=== PATIENT | female | born 1950 | race Two or more races ===

== ENCOUNTER 2017-05-12 14:55 | Inpatient (IN) | payer MEDICAID ==
[~2017-05-12] VITALS: Ht 160 cm; Wt 54.4 kg
[~2017-05-12 14:55] MED LIST: AMBIEN5 MG ORAL; ASPIRIN EC325 MG ORAL; ATORVASTATIN CA20 MG ORAL; BACTROBAN 2% OI15 GM TOPIC; BENAZEPRIL HCL10 MG ORAL; BISACODYL5 MG ORAL; CARBIDOPA-LEVO1 EAC1 PO; CRANBERRY450 M5 PO; DILAUDID1 MG/1 ML PO; DILAUDID2 MG ORAL; DOCUSATE SODIU100 MG ORAL; LANTUS5 UNITS SUBQ; METOPROLOL TART25 MG ORAL; MOBIC7.5 MG ORAL; NAMENDA10 MG ORAL; NEURONTIN600 MG ORAL; NITROGLYCERIN0.4 MG SL; NITROGLYCERIN2.5 M1 PO; NOVOLOG100 UNIT/3 SUBQ; SEROQUEL100 MG ORAL; SINEMET 25-1001 EAC1 ORAL; TOPIRAMATE100 MG ORAL; TRIHEXYPHENIDYL2 MG ORAL; TRILEPTAL150 MG ORAL; TYLENOL650 MG/20. ORAL; VITAMIN C500 M1 ORAL; ZINC50 M1 ORAL
[2017-05-12] MEDS ORDERED: LORazepam Inj 2mg/ml 1ml IM ONE (15:00)
[2017-05-12] MEDS ORDERED: LORazepam Inj 2mg/ml 1ml ONE (15:00)
[2017-05-12 15:10] VITALS: BP 117/67
[2017-05-12] MEDS ORDERED: HYDROmorphone 1mg/ml Carpuject IM ONE (15:30)
[2017-05-12 15:55] LABS: BASOPHILS % (AUTO) 0.5 % (0.0-2.0); EOSINOPHILS % (AUTO) 0.2 % (0.0-3.0); MEAN CORPUSCULAR HEMOGLOBIN 30.9 PG (27.0-31.0); MEAN CORPUSCULAR HGB CONC 35.6 G/DL (32.0-36.0); MEAN CORPUSCULAR VOLUME 87 FL (80-99); MEAN PLATELET VOLUME 8.4 FL (6.5-10.1); NEUTROPHILS % (AUTO) 78.3 % (45.0-75.0); PLATELET COUNT 245 K/UL (150-450); RED BLOOD COUNT 4.37 M/UL (4.20-5.40); RED CELL DISTRIBUTION WIDTH 11.9 % (11.6-14.8); WHITE BLOOD COUNT 8.5 K/UL (4.8-10.8)
[2017-05-12] MEDS ORDERED: IBUPROFEN600 MG ORAL (15:56)
[2017-05-12] MEDS ORDERED: TEMAZEPAM30 MG ORAL (15:56)
[2017-05-12] MEDS ORDERED: LANTUS SOL100 UNIT/1 SUBQ (15:56)
[2017-05-12] MEDS ORDERED: ARICEPT5 MG ORAL (15:56)
[2017-05-12] MEDS ORDERED: ATIVAN1 MG ORAL (15:56)
[2017-05-12] MEDS ORDERED: Hydromorphone 0.5mg/0.5ml inj IVP ONE (16:00)
[2017-05-12 16:02] LABS: ALANINE AMINOTRANSFERASE 6 U/L (3-33); ALBUMIN/GLOBULIN RATIO 1.3 (1.0-2.7); ANION GAP 15 (5-15); ASPARTATE AMINO TRANSFERASE 8 U/L (5-40); CALCIUM 9.7 mg/dL (8.6-10.2); CARBON DIOXIDE 28 mEQ/L (20-30); CHLORIDE 95 mEQ/L (98-107); CREATININE 1.6 mg/dL (0.5-0.9); GLOMERULAR FILTRATION RATE 32.1 mL/min (>60); HEMOLYSIS 6; MAGNESIUM 2.3 mg/dL (1.7-2.5); POTASSIUM 4.7 mEQ/L (3.4-4.9); SODIUM 138 mEQ/L (135-145); TOTAL PROTEIN 6.7 g/dL (6.6-8.7)
[2017-05-12 16:04] LABS: TROPONIN I < 0.30 ng/mL (<=0.30)
[2017-05-12 16:14] LABS: CKMB 2.2 ng/mL (< 3.8)
[2017-05-12 16:17] LABS: APPEARANCE,URINE SLIGHTLY CLOUDY; KETONES,URINE NEGATIVE (NEGATIVE); LEUKOCYTE ESTERASE ,URINE NEGATIVE (NEGATIVE); NITRITE,URINE NEGATIVE (NEGATIVE); PH,URINE 5 (4.5-8.0); PROTEIN,URINE NEGATIVE (NEGATIVE); UROBILINOGEN,URINE NORMAL MG/DL (0.0-1.0)
--- NOTE | 2017-05-12 17:10 | Emergency Room Report ---
History of Present Illness General Chief Complaint: Chest Pain Source: EMS Present Illness HPI 66-year-old female presents ED for evaluation. Per EMS patient's complaining of chest pain at the [facility] starting today. She has history of dementia and schizophrenia and is unable to provide any additional history. Patient only points to her chest. Patient screaming upon arrival. Patient appears more altered and usual as per nursing staff. Accu-Chek per EMS is also critically high. Patient has history of diabetes. No fevers or chills. No other aggravating relieving factors. No other associated symptom Allergies: Coded Allergies: CODEINE (Unverified Allergy, Unknown, 12/18/14) DIVALPROEX SODIUM (Unverified Allergy, Unknown, 12/18/14) Patient History Past Medical History: DM, HTN, COPD, dementia, psych hx Past Surgical History: none Pertinent Family History: none Social History: Denies: alcohol use, drug use, smoking Now: No Immunizations: UTD Reviewed Nursing Documentation: PMH: Agreed, PSxH: Agreed Nursing Documentation-PMH Hx Hypertension: Yes Hx COPD: Yes Hx Diabetes: Yes History Of Psychiatric Problem: Yes Hx Neurological Problems: Yes Hx Dementia: Yes Hx Alzheimer's Disease: Yes Hx Epilepsy: Yes Hx Speech Problem: Yes Review of Systems All Other Systems: negative except mentioned in HPI Physical Exam Vital Signs Date Time Temp Pulse Resp B/P Pulse Ox O2 Delivery O2 Flow Rate FiO2 05/12/17 14:45 98.1 103 18 117/67 98 Room Air Sp02 EP Interpretation: reviewed, normal General Appearance: no apparent distress, alert, GCS 15, non-toxic Head: normocephalic, atraumatic Eyes: bilateral eye PERRL, bilateral eye normal inspection ENT: hearing grossly normal, normal pharynx, no angioedema, normal voice Neck: full range of motion, supple/symm/no masses Respiratory: chest non-tender, lungs clear, normal breath sounds, speaking full sentences Cardiovascular #1: regular rate, rhythm, no edema Cardiovascular #2: 2+ carotid (R), 2+ carotid (L), 2+ radial (R), 2+ radial (L) , 2+ dorsalis pedis (R), 2+ dorsalis pedis (L) Gastrointestinal: normal bowel sounds, non tender, soft, non-distended, no guarding, no rebound Rectal: deferred Genitourinary: normal inspection, no CVA tenderness Musculoskeletal: back normal, gait/station normal, normal range of motion, non- tender, calf tenderness Neurologic: other Psychiatric: other - schizophrenia Reflexes: 3+ bicep (R), 3+ bicep (L), 3+ tricep (R), 3+ tricep (L), 3+ knee (R) , 3+ knee (L) Skin: normal color, no rash, warm/dry, well hydrated Lymphatic: no adenopathy Medical Decision Making Diagnostic Impression: Primary Impression: ACS (acute coronary syndrome) Additional Impressions: Hyperglycemia Renal insufficiency Schizophrenia Qualified Codes: F20.9 - Schizophrenia, unspecified ER Course Hospital Course 66-year-old female presents ED complaining of chest pain. Accu-Chek critically high Differential diagnoses include: CT/unstable angina, contusion, muscle strain, PTX, rib fracture Clinical course Patient placed on stretcher. on diagnostic cardiac sonographer. After initial history and physical I ordered labs, EKG, chest x-ray, IVFS Patient has schizophrenia and is agitated. Patient given Ativan. Given pain medications labs reviewed- no leukocytosis, hemoglobin/hematocrit stable, BUN/creatinine elevated, troponins negative, glucose given 600 however no signs of DKA EKG-no acute ischemic changes interpreted by me, sinus tachycardia Chest x-ray- unremarkable Patient given IV fluids. Given insulin. Given aspirin. Case discussed with Dr. Sr and he agreed to accept the patient to his service for further care and support I. I feel this is a highly complex case requiring extensive working including EKG/Rhythm strip, Xray/CT/US, Blood/urine lab work, repeat exams while in ED, and administration of strong opiates/narcotics for pain control, admission to hospital or close patient follow up. Diagnosis - ACS, hyperglycemia, renal insufficiency, schizophrenia admitted to telemetry in serious condition Labs Test 05/12/17 15:30 05/12/17 16:00 White Blood Count 8.5 K/UL (4.8-10.8) Red Blood Count 4.37 M/UL (4.20-5.40) Hemoglobin 13.5 G/DL (12.0-16.0) Hematocrit 37.9 % (37.0-47.0) Mean Corpuscular Volume 87 FL (80-99) Mean Corpuscular Hemoglobin 30.9 PG (27.0-31.0) Mean Corpuscular Hemoglobin Concent 35.6 G/DL (32.0-36.0) Red Cell Distribution Width 11.9 % (11.6-14.8) Platelet Count 245 K/UL (150-450) Mean Platelet Volume 8.4 FL (6.5-10.1) Neutrophils (%) (Auto) 78.3 % (45.0-75.0) Lymphocytes (%) (Auto) 15.0 % (20.0-45.0) Monocytes (%) (Auto) 6.0 % (1.0-10.0) Eosinophils (%) (Auto) 0.2 % (0.0-3.0) Basophils (%) (Auto) 0.5 % (0.0-2.0) Sodium Level 138 mEQ/L (135-145) Potassium Level 4.7 mEQ/L (3.4-4.9) Chloride Level 95 mEQ/L (98-107) Carbon Dioxide Level 28 mEQ/L (20-30) Anion Gap 15 (5-15) Blood Urea Nitrogen 51 mg/dL (7-23) Creatinine 1.6 mg/dL (0.5-0.9) Estimat Glomerular Filtration Rate 32.1 mL/min (>60) Glucose Level 634 mg/dL (74-106) Calcium Level 9.7 mg/dL (8.6-10.2) Magnesium Level 2.3 mg/dL (1.7-2.5) Total Bilirubin 0.5 mg/dL (0.0-1.2) Aspartate Amino Transf (AST/SGOT) 8 U/L (5-40) Alanine Aminotransferase (ALT/SGPT) 6 U/L (3-33) Alkaline Phosphatase 86 U/L (35-104) Total Creatine Kinase 56 U/L (26-140) Creatine Kinase MB 2.2 ng/mL (< 3.8) Creatine Kinase MB Relative Index 3.9 Troponin I < 0.30 ng/mL (<=0.30) Pro-B-Type Natriuretic Peptide 2113 pg/mL (0-125) Total Protein 6.7 g/dL (6.6-8.7) Albumin 3.8 g/dL (3.5-5.2) Globulin 2.9 g/dL Albumin/Globulin Ratio 1.3 (1.0-2.7) Acetone Level Negative (NEGATIVE) Urine Color Pale yellow Urine Appearance Slightly cloudy Urine pH 5 (4.5-8.0) Urine Specific [place] 1.010 (1.005-1.035) Urine Protein Negative (NEGATIVE) Urine Glucose (UA) 4+ (NEGATIVE) Urine Ketones Negative (NEGATIVE) Urine Occult Blood Negative (NEGATIVE) Urine Nitrite Negative (NEGATIVE) Urine Bilirubin Negative (NEGATIVE) Urine Urobilinogen Normal MG/DL (0.0-1.0) Urine Leukocyte Esterase Negative (NEGATIVE) EKG Diagnostic Results Rate: tachycardiac Rhythm: NSR ST Segments: no acute changes ASA given to the pt in ED: Yes Rhythm Strip Diag. Results EP Interpretation: yes Rhythm: NSR, no PVC's, no ectopy Chest X-Ray Diagnostic Results Chest X-Ray Diagnostic Results : Chest X-Ray Ordered: Yes # of Views/Limited/Complete: 1 View Indication: Chest Pain EP Interpretation: Yes Interpretation: no consolidation, no effusion, no pneumothorax, no acute cardiopulmonary disease Impression: No acute disease Interpreting ER Provider: Electronically signed by Clinton Hunt MD Last Vital Signs Date Time Temp Pulse Resp B/P Pulse Ox O2 Delivery O2 Flow Rate FiO2 05/12/17 16:39 98.1 05/12/17 15:10 102 18 Room Air 05/12/17 15:10 117/67 98 Status: improved Disposition: ADMITTED INPATIENT Condition: Serious Referrals: NON PHYSICIAN (PCP) CLINTON HUNT M.D. May 12, 2017 17:10
[2017-05-12 17:11] LABS: AMORPHOUS SEDIMENT,UR MODERATE /LPF; BACTERIA,URINE FEW /HPF; RBC,URINE 0-2 /HPF (0 - 2); SQUAMOUS EPITHELIAL CELL,UR FEW /LPF (NONE/OCC); WBC,URINE 0-2 /HPF (0 - 2)
[2017-05-12 17:18] VITALS: BP 120/58
[2017-05-12 18:00] VITALS: BP 104/61
[2017-05-12] MEDS: Trihexyphenidyl 2mg tab ORAL SCH ×2 (18:00→22:08)
[2017-05-12] MEDS ORDERED: DuoNeb 0.5-3(2.5)mg/3ml neb HHN PRN (18:00)
[2017-05-12] MEDS ORDERED: LORazepam 1mg tab ORAL PRN (18:00)
[2017-05-12] MEDS ORDERED: Miralax 17gm pkt ORAL PRN (18:00)
[2017-05-12] MEDS ORDERED: Nitroglycerin Subl 0.4mg tab (Bottle Of 25) SL PRN (18:00)
--- NOTE | 2017-05-12 18:17 | History and Physical ---
History of Present Illness General Date patient seen: May 12, 2017 Time patient seen: 17:30 Reason for Hospitalization: Chest Pain Present Illness HPI 66-year-old female with PMH of dementia , DM, HTN, Parkinson disease, presented to ED for evaluation from SNF patient was complaining of chest pain at the [facility] starting today. Patient was unable to provide any additional history. Patient only was pointing to her chest and screamed . Patient appeared more altered than usual as per nursing staff. Accu-Chek per EMS was also critically high. No fevers or chills. workup in ED revealed no fever, no leukocytosis no evidence of UTI troponin negative pro BNP -2113 BS 634 ; anion gar and bicarb WNL UA no ketones acetone level negative BUN 51 creat-1.6 patient was admitted for further management Allergies: Coded Allergies: CODEINE (Unverified Allergy, Unknown, 12/18/14) DIVALPROEX SODIUM (Unverified Allergy, Unknown, 12/18/14) Medication History Scheduled Ascorbic Acid* (Vitamin C*), 500 MG ORAL DAILY, (Reported) Aspirin* (Aspirin Ec*), 325 MG ORAL DAILY, (Reported) Atorvastatin Calcium* (Atorvastatin Calcium*), 20 MG ORAL BEDTIME, (Reported) Benazepril Hcl* (Benazepril Hcl*), 10 MG ORAL DAILY, (Reported) Carbidopa/Levodopa (Carbidopa-Levodopa 25-100 Tab), 1 EACH PO BID, (Reported) Carbidopa/Levodopa 25-100 Mg* (Sinemet 25-100 Mg Tablet*), 1 TAB ORAL BID, ( Reported) Docusate Sodium* (Docusate Sodium*), 100 MG ORAL TWICE A DAY, (Reported) Donepezil Hcl* (Aricept*), 5 MG ORAL DAILY, (Reported) Gabapentin* (Neurontin*), 600 MG ORAL EVERY 8 HOURS, (Reported) Hydromorphone Hcl (Dilaudid), 2 MG PO EVERY 6 HOURS, (Reported) Ibuprofen* (Motrin*), 600 MG ORAL FOUR TIMES A DAY, (Reported) Insulin Aspart* (Novolog*), 0 SUBQ ACHS, (Reported) Insulin Glargine (Lantus), 25 SUBQ EVERY 12 HOURS, (Reported) Insulin Glargine (Lantus), 16 SUBQ Q12HR, (Reported) Lorazepam* (Ativan*), 1 MG ORAL THREE TIMES A DAY, (Reported) Meloxicam* (Mobic*), 7.5 MG ORAL DAILY, (Reported) Memantine Hcl* (Namenda*), 10 MG ORAL TWICE A DAY, (Reported) Metoprolol Tartrate* (Metoprolol Tartrate*), 25 MG ORAL EVERY 12 HOURS, ( Reported) Mupirocin (Mupirocin), 1 APPLIC TOPIC BID, (Reported) Nitroglycerin (Nitroglycerin), 0.4 MG PO DAILY, (Reported) Oxcarbazepine (Oxcarbazepine), 150 MG ORAL TID, (Reported) Quetiapine Fumarate* (Seroquel*), 150 MG ORAL BEDTIME, (Reported) Topiramate* (Topamax*), 100 MG ORAL TWICE A DAY, (Reported) Trihexyphenidyl Hcl* (Artane*), 2 MG ORAL TWICE A DAY, (Reported) Zinc (Zinc), 220 MG ORAL DAILY, (Reported) Scheduled PRN Acetaminophen (Acetaminophen), 650 MG ORAL EVERY 4 HOURS PRN for Prn Headache/ Temp > 101, (Reported) Bisacodyl* (Dulcolax*), 10 MG ORAL DAILY PRN for Constipation, (Reported) Hydromorphone HCl (Dilaudid), 2 MG ORAL EVERY 6 HOURS PRN for For Pain, ( Reported) Nitroglycerin (Nitroglycerin), 0.4 MG SL q 5min PRN for chest pain, (Reported) Temazepam* (Temazepam*), 15 MG ORAL BEDTIME PRN for Insomnia, (Reported) Zolpidem Tartrate* (Ambien*), 5 MG ORAL BEDTIME PRN for Insomnia, (Reported) Miscellaneous Medications Cranberry Fruit (Cranberry), 450 MG PO, (Reported) Patient History Healthcare decision maker Resuscitation status Advanced Directive on File Past Medical/Surgical History Past Medical/Surgical History: (1) Dementia (2) Diabetes (3) Schizophrenia Review of Systems ROS Narrative unable to obtain due to altered level of consciousness Physical Exam General Appearance: alert, confused, other Lines, tubes and drains: peripheral HEENT: normocephalic, atraumatic, anicteric Neck: non-tender, supple Respiratory/Chest: lungs clear, no respiratory distress, no accessory muscle use Cardiovascular/Chest: normal peripheral pulses, normal rate, regular rhythm Abdomen: normal bowel sounds, non tender, soft Neurologic: abnormal gait, alert - confused, responsive, farsi speaking Musculoskeletal: atrophy - BLE Last 24 Hour Vital Signs Date Time Temp Pulse Resp B/P Pulse Ox O2 Delivery O2 Flow Rate FiO2 05/12/17 17:35 98.1 92 18 120/58 98 Room Air 05/12/17 17:18 98.1 92 18 120/58 98 Room Air 05/12/17 16:39 98.1 05/12/17 15:10 102 18 Room Air 05/12/17 15:10 98.1 102 18 117/67 98 Room Air 05/12/17 14:45 98.1 103 18 117/67 98 Room Air Laboratory Tests Test 05/12/17 15:30 05/12/17 16:00 White Blood Count 8.5 K/UL (4.8-10.8) Red Blood Count 4.37 M/UL (4.20-5.40) Hemoglobin 13.5 G/DL (12.0-16.0) Hematocrit 37.9 % (37.0-47.0) Mean Corpuscular Volume 87 FL (80-99) Mean Corpuscular Hemoglobin 30.9 PG (27.0-31.0) Mean Corpuscular Hemoglobin Concent 35.6 G/DL (32.0-36.0) Red Cell Distribution Width 11.9 % (11.6-14.8) Platelet Count 245 K/UL (150-450) Mean Platelet Volume 8.4 FL (6.5-10.1) Neutrophils (%) (Auto) 78.3 % (45.0-75.0) H Lymphocytes (%) (Auto) 15.0 % (20.0-45.0) L Monocytes (%) (Auto) 6.0 % (1.0-10.0) Eosinophils (%) (Auto) 0.2 % (0.0-3.0) Basophils (%) (Auto) 0.5 % (0.0-2.0) Sodium Level 138 mEQ/L (135-145) Potassium Level 4.7 mEQ/L (3.4-4.9) Chloride Level 95 mEQ/L (98-107) L Carbon Dioxide Level 28 mEQ/L (20-30) Anion Gap 15 (5-15) Blood Urea Nitrogen 51 mg/dL (7-23) H Creatinine 1.6 mg/dL (0.5-0.9) H Estimat Glomerular Filtration Rate 32.1 mL/min (>60) Glucose Level 634 mg/dL (74-106) *H Calcium Level 9.7 mg/dL (8.6-10.2) Magnesium Level 2.3 mg/dL (1.7-2.5) Total Bilirubin 0.5 mg/dL (0.0-1.2) Aspartate Amino Transf (AST/SGOT) 8 U/L (5-40) Alanine Aminotransferase (ALT/SGPT) 6 U/L (3-33) Alkaline Phosphatase 86 U/L (35-104) Total Creatine Kinase 56 U/L (26-140) Creatine Kinase MB 2.2 ng/mL (< 3.8) Creatine Kinase MB Relative Index 3.9 Troponin I < 0.30 ng/mL (<=0.30) Pro-B-Type Natriuretic Peptide 2113 pg/mL (0-125) H Total Protein 6.7 g/dL (6.6-8.7) Albumin 3.8 g/dL (3.5-5.2) Globulin 2.9 g/dL Albumin/Globulin Ratio 1.3 (1.0-2.7) Acetone Level Negative (NEGATIVE) Urine Color Pale yellow Urine Appearance Slightly cloudy Urine pH 5 (4.5-8.0) Urine Specific [place] 1.010 (1.005-1.035) Urine Protein Negative (NEGATIVE) Urine Glucose (UA) 4+ (NEGATIVE) H Urine Ketones Negative (NEGATIVE) Urine Occult Blood Negative (NEGATIVE) Urine Nitrite Negative (NEGATIVE) Urine Bilirubin Negative (NEGATIVE) Urine Urobilinogen Normal MG/DL (0.0-1.0) Urine Leukocyte Esterase Negative (NEGATIVE) Urine RBC 0-2 /HPF (0 - 2) Urine WBC 0-2 /HPF (0 - 2) Urine Squamous Epithelial Cells Few /LPF (NONE/OCC) Urine Amorphous Sediment Moderate /LPF (NONE) H Urine Bacteria Few /HPF (NONE) Height (Feet): 5 Height (Inches): 3.00 Weight (Pounds): 120 Assessment/Plan Assessment/Plan ASSESSMENT chest pain r/o ACS hyperglycemia DM OOC Hx of HTN acute on chronic encephalopathy acute on chronic renal insufficiency chronic dementia Parkinson disease PLAN OF CARE [facility] serial troponin cardio eval ECHO ECG no ST changes , repeat ECG in am restart ASA Nitro prn BP stable , hold on all anti HTN for now BS management with SS of insulin, check HgA1c and optimize further as needed no evidence of DKA CT head no acute intracranial pathology gentle IVF ] monitor renal parameters lytes, avoid nephrotoxic renal US DVT prophylaxis bowel regimen case discussed and evaluated by supervising physician Kodak Geronimomaximo),Berenice LUNDBERG May 12, 2017 18:17
[2017-05-12 20:00] VITALS: BP 133/73
[2017-05-12] MEDS ORDERED: HUMULIN R100 UNIT/1 SUBQ (20:15)
[2017-05-12] MEDS ORDERED: TYLENOL EXTRA500 MG ORAL (20:19)
[2017-05-12] MEDS: Atorvastatin 20mg tab ORAL SCH ×2 (20:51→22:09)
[2017-05-12] MEDS ORDERED: Heparin 5000 units/ml inj SUBQ SCH (21:00)
[2017-05-12] MEDS ORDERED: NovoLOG Insulin Flexpen SUBQ SCH (21:00)
[2017-05-12] MEDS ORDERED: LORazepam Inj 2mg/ml 1ml IV PRN (23:00)
[2017-05-12 23:39] VITALS: BP 115/69
[2017-05-13 04:00] VITALS: BP 118/70
[2017-05-13] MEDS ORDERED: LORazepam Inj 2mg/ml 1ml IV PRN ×3 (05:30→09:30)
[2017-05-13] MEDS ORDERED: Nitroglycerin Subl 0.4mg tab (Bottle Of 25) SL PRN (06:05)
[2017-05-13 06:06] LABS: BASOPHILS % (AUTO) 0.7 % (0.0-2.0); EOSINOPHILS % (AUTO) 1.4 % (0.0-3.0); LYMPHOCYTES % (AUTO) 40.6 % (20.0-45.0); MEAN CORPUSCULAR HEMOGLOBIN 30.2 PG (27.0-31.0); MEAN CORPUSCULAR HGB CONC 33.6 G/DL (32.0-36.0); MEAN CORPUSCULAR VOLUME 90 FL (80-99); MEAN PLATELET VOLUME 8.7 FL (6.5-10.1); MONOCYTES % (AUTO) 4.7 % (1.0-10.0); NEUTROPHILS % (AUTO) 52.7 % (45.0-75.0); PLATELET COUNT 188 K/UL (150-450); RED BLOOD COUNT 3.56 M/UL (4.20-5.40); RED CELL DISTRIBUTION WIDTH 11.9 % (11.6-14.8); WHITE BLOOD COUNT 7.5 K/UL (4.8-10.8)
[2017-05-13 06:14] LABS: CALCIUM 9.1 mg/dL (8.6-10.2); CHOLESTEROL/HDL RATIO 5.2 (3.3-4.4); GLOMERULAR FILTRATION RATE 55.1 mL/min (>60)
[2017-05-13 06:17] LABS: TROPONIN I < 0.30 ng/mL (<=0.30)
[2017-05-13 06:18] VITALS: BP 104/50
[2017-05-13 06:26] LABS: THYROID STIMULATING HORMONE 1.05 uIU/mL (0.300-4.500)
[2017-05-13] MEDS: NovoLOG Insulin Flexpen SUBQ SCH ×4 (06:41→20:52)
[2017-05-13 07:03] LABS: POTASSIUM 4.8 mEQ/L (3.4-4.9)
[2017-05-13 08:00] VITALS: BP 126/58
[2017-05-13] MEDS ORDERED: Donepezil 5mg Tab ORAL SCH ×2 (09:00)
[2017-05-13] MEDS ORDERED: Aspirin EC 325mg tab ORAL SCH (09:00)
[2017-05-13] MEDS ORDERED: Trihexyphenidyl 2mg tab ORAL SCH (09:00)
--- NOTE | 2017-05-13 09:10 | Diagnostic Imaging Report ---
Indication: CP. Technique: XRAY CHEST 1 V. Comparison: 12/18/2014 Findings: The heart is normal in size. There is calcification of the mitral valve. The lungs are clear. No pleural fluid. There is atherosclerotic change of the aorta. The bones are unremarkable. Impression: Atherosclerotic change. Nohemy valvular calcification. Otherwise negative.
[2017-05-13] MEDS: Aspirin EC 325mg tab ORAL SCH (09:57)
[2017-05-13] MEDS: Heparin 5000 units/ml inj SUBQ SCH ×2 (09:59→20:53)
[2017-05-13] MEDS ORDERED: DuoNeb 0.5-3(2.5)mg/3ml neb HHN PRN (10:00)
[2017-05-13] MEDS ORDERED: LORazepam Inj 2mg/ml 1ml IM ONE (10:15)
[2017-05-13] MEDS ORDERED: Haloperidol 5mg/ml Inj IM ONE (10:15)
[2017-05-13] MEDS ORDERED: DiphenhydrAMINE 50mg/ml Inj IM ONE (10:15)
--- NOTE | 2017-05-13 11:33 | Pulmonology Progress Note ---
Assessment/Plan Assessment/Plan ASSESSMENT chest pain r/o ACS hyperglycemia DM OOC Hx of HTN acute on chronic encephalopathy acute on chronic renal insufficiency chronic dementia Parkinson disease PLAN OF CARE [facility] floor serial troponin x 2 negative ECHO with pEF 60% and RVSP of 12, evidence of moderate MR and diastolic dysfunction ECG no ST changes , repeat ECG this am cardio eval restarted on ASA Nitro prn BP stable , hold on all anti HTN for now lipid panel with elevated TG lo fat diet BS management with SS of insulin, HgA1c -12.0 start Levemir and optimize further as needed no evidence of DKA on initial presentation despite hyperglycemia CT head no acute intracranial pathology gentle IVF monitor renal parameters lytes, avoid nephrotoxic renal US DVT prophylaxis bowel regimen psych eval appreciated, started on psych meds as per psych recommendations dc plan for tomorrow after cardio clearance case discussed and evaluated by supervising physician Subjective Allergies: Coded Allergies: CODEINE (Unverified Allergy, Unknown, 12/18/14) DIVALPROEX SODIUM (Unverified Allergy, Unknown, 12/18/14) Subjective no complaints of chest pain, no SOB ECG with NSR, transferred to [facility] floor from [facility] Objective Last 24 Hour Vital Signs Date Time Temp Pulse Resp B/P Pulse Ox O2 Delivery O2 Flow Rate FiO2 05/13/17 08:00 97.3 85 18 126/58 98 Room Air 05/13/17 06:35 98 18 Room Air 05/13/17 06:18 97.4 63 18 104/50 100 Room Air 05/13/17 04:00 104 05/13/17 04:00 98.3 107 18 118/70 97 Room Air 05/13/17 00:00 121 05/12/17 23:39 97.8 125 20 115/69 98 Room Air 05/12/17 20:00 97.6 89 20 133/73 98 Room Air 05/12/17 20:00 79 05/12/17 18:00 97.9 86 18 104/61 96 Room Air 05/12/17 17:35 98.1 92 18 120/58 98 Room Air 05/12/17 17:18 98.1 92 18 120/58 98 Room Air 05/12/17 16:39 98.1 05/12/17 15:10 102 18 Room Air 05/12/17 15:10 98.1 102 18 117/67 98 Room Air 05/12/17 14:45 98.1 103 18 117/67 98 Room Air Intake and Output 05/12/17 05/13/17 19:00 07:00 Intake Total 460 ml 600 ml Balance 460 ml 600 ml Intake Oral 60 ml 50 ml IV Total 400 ml 550 ml # Bowel Movements 2 Objective General Appearance: alert, confused, other Lines, tubes and drains: peripheral HEENT: normocephalic, atraumatic, anicteric Neck: non-tender, supple Respiratory/Chest: lungs clear, no respiratory distress, no accessory muscle use Cardiovascular/Chest: normal peripheral pulses, normal rate, regular rhythm Abdomen: normal bowel sounds, non tender, soft Neurologic: abnormal gait, alert - confused, responsive, farsi speaking Musculoskeletal: atrophy - BLE Laboratory Tests 05/12/17 15:30: White Blood Count 8.5, Red Blood Count 4.37, Hemoglobin 13.5, Hematocrit 37.9, Mean Corpuscular Volume 87, Mean Corpuscular Hemoglobin 30.9, Mean Corpuscular Hemoglobin Concent 35.6, Red Cell Distribution Width 11.9, Platelet Count 245, Mean Platelet Volume 8.4, Neutrophils (%) (Auto) 78.3H, Lymphocytes (%) (Auto) 15.0L, Monocytes (%) (Auto) 6.0, Eosinophils (%) (Auto) 0.2, Basophils (%) (Auto ) 0.5, Sodium Level 138, Potassium Level 4.7, Chloride Level 95L, Carbon Dioxide Level 28, Anion Gap 15, Blood Urea Nitrogen 51H, Creatinine 1.6H, Estimat Glomerular Filtration Rate 32.1, Glucose Level 634*H, Calcium Level 9.7 , Magnesium Level 2.3, Total Bilirubin 0.5, Aspartate Amino Transf (AST/SGOT) 8 , Alanine Aminotransferase (ALT/SGPT) 6, Alkaline Phosphatase 86, Total Creatine Kinase 56, Creatine Kinase MB 2.2, Creatine Kinase MB Relative Index 3.9, Troponin I < 0.30, Pro-B-Type Natriuretic Peptide 2113H, Total Protein 6.7 , Albumin 3.8, Globulin 2.9, Albumin/Globulin Ratio 1.3, Acetone Level Negative 05/12/17 16:00: Urine Color Pale yellow, Urine Appearance Slightly cloudy, Urine pH 5, Urine Specific [place] 1.010, Urine Protein Negative, Urine Glucose (UA) 4+H, Urine Ketones Negative, Urine Occult Blood Negative, Urine Nitrite Negative, Urine Bilirubin Negative, Urine Urobilinogen Normal, Urine Leukocyte Esterase Negative , Urine RBC 0-2, Urine WBC 0-2, Urine Squamous Epithelial Cells Few, Urine Amorphous Sediment ModerateH, Urine Bacteria Few 05/13/17 05:02: White Blood Count 7.5, Red Blood Count 3.56L, Hemoglobin 10.8L, Hematocrit 32.0L , Mean Corpuscular Volume 90, Mean Corpuscular Hemoglobin 30.2, Mean Corpuscular Hemoglobin Concent 33.6, Red Cell Distribution Width 11.9, Platelet Count 188, Mean Platelet Volume 8.7, Neutrophils (%) (Auto) 52.7, Lymphocytes (% ) (Auto) 40.6, Monocytes (%) (Auto) 4.7, Eosinophils (%) (Auto) 1.4, Basophils ( %) (Auto) 0.7, Sodium Level 142, Potassium Level 4.8, Chloride Level 105, Carbon Dioxide Level 24, Anion Gap 13, Blood Urea Nitrogen 36H, Creatinine 1.0H , Estimat Glomerular Filtration Rate 55.1, Glucose Level 225#H, Calcium Level 9.1, Troponin I < 0.30, Hemoglobin A1c 12.0H, Triglycerides Level 193H, Cholesterol Level 150, LDL Cholesterol 82, HDL Cholesterol 29, Cholesterol/HDL Ratio 5.2H, Thyroid Stimulating Hormone (TSH) 1.050 Current Medications Medications (Trade) Dose Ordered Sig/Janki Route PRN Reason Start Time Stop Time Status Last Admin Dose Admin Acetaminophen (Tylenol) 650 mg Q4H PRN ORAL T>100.5 05/13/17 10:00 06/12/17 09:59 Albuterol/ Ipratropium (DuoNeb 0.5-3(2.5)mg/3ml) 3 ml Q4H PRN HHN Shortness of Breath 05/13/17 10:00 05/18/17 09:59 Aspirin (Ecotrin) 325 mg DAILY ORAL 05/13/17 09:00 06/12/17 08:59 05/13/17 09:57 Atorvastatin Calcium (Lipitor) 20 mg BEDTIME ORAL 05/13/17 21:00 06/12/17 20:59 Dextrose (Dextrose 50%) STAT PRN IV Hypoglycemia 05/13/17 18:15 06/12/17 18:14 Donepezil HCl (Aricept) 5 mg DAILY ORAL 05/13/17 09:00 06/12/17 08:59 05/13/17 09:57 Heparin Sodium (Porcine) (Heparin 5000 units/ml) 5,000 units EVERY 12 HOURS SUBQ 05/13/17 09:00 06/12/17 08:59 05/13/17 09:59 Insulin Aspart (NovoLOG) BEFORE MEALS AND HS SUBQ 05/13/17 06:30 06/12/17 06:29 05/13/17 06:41 Lorazepam (Ativan 2mg/ml 1ml) 1 mg Q4H PRN IV For Anxiety 05/13/17 09:30 05/20/17 09:29 Lorazepam (Ativan) 1 mg Q8H PRN ORAL ANXIETY 05/13/17 10:00 05/20/17 09:59 Meloxicam (Mobic) 7.5 mg DAILY ORAL 05/13/17 09:00 06/12/17 08:59 05/13/17 09:56 Nitroglycerin (Ntg) 0.4 mg Q5M PRN SL Prn Chest Pain 05/13/17 06:05 06/12/17 06:04 Ondansetron HCl (Zofran) 4 mg Q6H PRN IVP Nausea & Vomiting 05/13/17 12:00 06/12/17 11:59 Polyethylene Glycol (Miralax) 17 gm DAILYPRN PRN ORAL Constipation 05/13/17 18:00 06/12/17 17:59 Quetiapine Fumarate (SEROquel) 150 mg BEDTIME ORAL 05/13/17 21:00 06/12/17 20:59 Sodium Chloride (Sodium Chloride 1000ml bag) 1,000 ml @ 50 mls/hr Q20H IV 05/13/17 06:00 06/12/17 05:59 Temazepam (Restoril) 15 mg DAILYPRN PRN ORAL Insomnia 05/13/17 21:00 05/20/17 20:59 Trihexyphenidyl HCl (Artane) 2 mg TWICE A DAY ORAL 05/13/17 09:00 06/12/17 08:59 05/13/17 09:56 Berenice Candelario NP ([facility]) May 13, 2017 11:33
[2017-05-13 12:00] VITALS: BP 140/62
--- NOTE | 2017-05-13 14:47 | Consultation ---
History of Present Illness General Chief Complaint: Chest Pain Present Illness HPI 66-year-old female with PMH of dementia , DM, HTN, Parkinson disease, presented to ED for evaluation from SNF the patient was complaining of chest pain. the pt is agitated and has severe cognitive impairment. yelling and is severely agitated. spoke with brother who gave me consent to start antipsychotics/ Allergies: Coded Allergies: CODEINE (Unverified Allergy, Unknown, 12/18/14) DIVALPROEX SODIUM (Unverified Allergy, Unknown, 12/18/14) Medication History Scheduled Ascorbic Acid* (Vitamin C*), 500 MG ORAL DAILY, (Reported) Aspirin* (Aspirin Ec*), 325 MG ORAL DAILY, (Reported) Benazepril Hcl* (Benazepril Hcl*), 10 MG ORAL DAILY, (Reported) Carbidopa/Levodopa (Carbidopa-Levodopa 25-100 Tab), 1 EACH PO ACBREAKFAST, ( Reported) Docusate Sodium* (Docusate Sodium*), 100 MG ORAL DAILY, (Reported) Donepezil Hcl* (Aricept*), 5 MG ORAL HS, (Reported) Ibuprofen* (Motrin*), 600 MG ORAL FOUR TIMES A DAY, (Reported) Lorazepam* (Ativan*), 1 MG ORAL THREE TIMES A DAY, (Reported) Meloxicam* (Mobic*), 7.5 MG ORAL DAILY, (Reported) Metoprolol Tartrate* (Metoprolol Tartrate*), 25 MG ORAL EVERY 12 HOURS, ( Reported) Scheduled PRN Acetaminophen* (Tylenol Extra Strength*), 500 MG ORAL Q8H PRN for Prn Headache/ Temp > 101, (Reported) Temazepam* (Temazepam*), 15 MG ORAL BEDTIME PRN for Insomnia, (Reported) Miscellaneous Medications Cranberry Fruit (Cranberry), 450 MG PO, (Reported) Insulin Regular, Human (Humulin R), 0 SUBQ, (Reported) Discontinued Medications Acetaminophen (Acetaminophen), 650 MG ORAL EVERY 4 HOURS PRN for Prn Headache/ Temp > 101, (Reported) Discontinued Reason: Pt stopped taking med Atorvastatin Calcium* (Atorvastatin Calcium*), 20 MG ORAL BEDTIME, (Reported) Discontinued Reason: Pt stopped taking med Bisacodyl* (Dulcolax*), 10 MG ORAL DAILY PRN for Constipation, (Reported) Discontinued Reason: Pt stopped taking med Carbidopa/Levodopa 25-100 Mg* (Sinemet 25-100 Mg Tablet*), 1 TAB ORAL BID, ( Reported) Discontinued Reason: Pt stopped taking med Gabapentin* (Neurontin*), 600 MG ORAL EVERY 8 HOURS, (Reported) Discontinued Reason: Pt stopped taking med Hydromorphone HCl (Dilaudid), 2 MG ORAL EVERY 6 HOURS PRN for For Pain, ( Reported) Discontinued Reason: Pt stopped taking med Hydromorphone Hcl (Dilaudid), 2 MG PO EVERY 6 HOURS, (Reported) Discontinued Reason: Pt stopped taking med Insulin Aspart* (Novolog*), 0 SUBQ ACHS, (Reported) Discontinued Reason: Pt stopped taking med Insulin Glargine (Lantus), 25 SUBQ EVERY 12 HOURS, (Reported) Discontinued Reason: MD discontinued med Insulin Glargine (Lantus), 16 SUBQ Q12HR, (Reported) Discontinued Reason: MD discontinued med Memantine Hcl* (Namenda*), 10 MG ORAL TWICE A DAY, (Reported) Discontinued Reason: Pt stopped taking med Mupirocin (Mupirocin), 1 APPLIC TOPIC BID, (Reported) Discontinued Reason: Pt stopped taking med Nitroglycerin (Nitroglycerin), 0.4 MG PO DAILY, (Reported) Discontinued Reason: Pt stopped taking med Nitroglycerin (Nitroglycerin), 0.4 MG SL q 5min PRN for chest pain, (Reported) Discontinued Reason: Pt stopped taking med Oxcarbazepine (Oxcarbazepine), 150 MG ORAL TID, (Reported) Discontinued Reason: Pt stopped taking med Quetiapine Fumarate* (Seroquel*), 150 MG ORAL BEDTIME, (Reported) Discontinued Reason: Pt stopped taking med Topiramate* (Topamax*), 100 MG ORAL TWICE A DAY, (Reported) Discontinued Reason: Pt stopped taking med Trihexyphenidyl Hcl* (Artane*), 2 MG ORAL TWICE A DAY, (Reported) Discontinued Reason: Pt stopped taking med Zinc (Zinc), 220 MG ORAL DAILY, (Reported) Discontinued Reason: Pt stopped taking med Zolpidem Tartrate* (Ambien*), 5 MG ORAL BEDTIME PRN for Insomnia, (Reported) Discontinued Reason: Pt stopped taking med Patient History Limited by: medical condition History Provided By: Patient, Family Member, Medical Record, PMD Healthcare decision maker Resuscitation status Full Code Advanced Directive on File Past Medical/Surgical History Past Medical/Surgical History: (1) Chest pain (2) Dementia (3) Diabetes (4) Chest pain (5) Hyperglycemia (6) Renal insufficiency (7) Schizophrenia (8) ACS (acute coronary syndrome) Review of Systems Psychiatric: Reports: anxiety, depressed feelings, emotional problems, hallucinations, prior hx Physical Exam General Appearance: alert, severe distress, agitated Neurologic: alert, responsive, disoriented, depressed affect Last 24 Hour Vital Signs Date Time Temp Pulse Resp B/P Pulse Ox O2 Delivery O2 Flow Rate FiO2 05/13/17 12:00 96.8 83 18 140/62 100 Room Air 05/13/17 08:00 97.3 85 18 126/58 98 Room Air 05/13/17 06:35 98 18 Room Air 05/13/17 06:18 97.4 63 18 104/50 100 Room Air 05/13/17 04:00 104 05/13/17 04:00 98.3 107 18 118/70 97 Room Air 05/13/17 00:00 121 05/12/17 23:39 97.8 125 20 115/69 98 Room Air 05/12/17 20:00 97.6 89 20 133/73 98 Room Air 05/12/17 20:00 79 05/12/17 18:00 97.9 86 18 104/61 96 Room Air 05/12/17 17:35 98.1 92 18 120/58 98 Room Air 05/12/17 17:18 98.1 92 18 120/58 98 Room Air 05/12/17 16:39 98.1 05/12/17 15:10 102 18 Room Air 05/12/17 15:10 98.1 102 18 117/67 98 Room Air 05/12/17 14:45 98.1 103 18 117/67 98 Room Air Intake and Output 05/12/17 05/13/17 19:00 07:00 Intake Total 460 ml 600 ml Balance 460 ml 600 ml Intake Oral 60 ml 50 ml IV Total 400 ml 550 ml # Bowel Movements 2 Laboratory Tests Test 05/12/17 15:30 05/12/17 16:00 05/13/17 05:02 White Blood Count 8.5 K/UL (4.8-10.8) 7.5 K/UL (4.8-10.8) Red Blood Count 4.37 M/UL (4.20-5.40) 3.56 M/UL (4.20-5.40) L Hemoglobin 13.5 G/DL (12.0-16.0) 10.8 G/DL (12.0-16.0) L Hematocrit 37.9 % (37.0-47.0) 32.0 % (37.0-47.0) L Mean Corpuscular Volume 87 FL (80-99) 90 FL (80-99) Mean Corpuscular Hemoglobin 30.9 PG (27.0-31.0) 30.2 PG (27.0-31.0) Mean Corpuscular Hemoglobin Concent 35.6 G/DL (32.0-36.0) 33.6 G/DL (32.0-36.0) Red Cell Distribution Width 11.9 % (11.6-14.8) 11.9 % (11.6-14.8) Platelet Count 245 K/UL (150-450) 188 K/UL (150-450) Mean Platelet Volume 8.4 FL (6.5-10.1) 8.7 FL (6.5-10.1) Neutrophils (%) (Auto) 78.3 % (45.0-75.0) H 52.7 % (45.0-75.0) Lymphocytes (%) (Auto) 15.0 % (20.0-45.0) L 40.6 % (20.0-45.0) Monocytes (%) (Auto) 6.0 % (1.0-10.0) 4.7 % (1.0-10.0) Eosinophils (%) (Auto) 0.2 % (0.0-3.0) 1.4 % (0.0-3.0) Basophils (%) (Auto) 0.5 % (0.0-2.0) 0.7 % (0.0-2.0) Sodium Level 138 mEQ/L (135-145) 142 mEQ/L (135-145) Potassium Level 4.7 mEQ/L (3.4-4.9) 4.8 mEQ/L (3.4-4.9) Chloride Level 95 mEQ/L (98-107) L 105 mEQ/L (98-107) Carbon Dioxide Level 28 mEQ/L (20-30) 24 mEQ/L (20-30) Anion Gap 15 (5-15) 13 (5-15) Blood Urea Nitrogen 51 mg/dL (7-23) H 36 mg/dL (7-23) H Creatinine 1.6 mg/dL (0.5-0.9) H 1.0 mg/dL (0.5-0.9) H Estimat Glomerular Filtration Rate 32.1 mL/min (>60) 55.1 mL/min (>60) Glucose Level 634 mg/dL (74-106) *H 225 mg/dL (74-106) #H Calcium Level 9.7 mg/dL (8.6-10.2) 9.1 mg/dL (8.6-10.2) Magnesium Level 2.3 mg/dL (1.7-2.5) Total Bilirubin 0.5 mg/dL (0.0-1.2) Aspartate Amino Transf (AST/SGOT) 8 U/L (5-40) Alanine Aminotransferase (ALT/SGPT) 6 U/L (3-33) Alkaline Phosphatase 86 U/L (35-104) Total Creatine Kinase 56 U/L (26-140) Creatine Kinase MB 2.2 ng/mL (< 3.8) Creatine Kinase MB Relative Index 3.9 Troponin I < 0.30 ng/mL (<=0.30) < 0.30 ng/mL (<=0.30) Pro-B-Type Natriuretic Peptide 2113 pg/mL (0-125) H Total Protein 6.7 g/dL (6.6-8.7) Albumin 3.8 g/dL (3.5-5.2) Globulin 2.9 g/dL Albumin/Globulin Ratio 1.3 (1.0-2.7) Acetone Level Negative (NEGATIVE) Urine Color Pale yellow Urine Appearance Slightly cloudy Urine pH 5 (4.5-8.0) Urine Specific [place] 1.010 (1.005-1.035) Urine Protein Negative (NEGATIVE) Urine Glucose (UA) 4+ (NEGATIVE) H Urine Ketones Negative (NEGATIVE) Urine Occult Blood Negative (NEGATIVE) Urine Nitrite Negative (NEGATIVE) Urine Bilirubin Negative (NEGATIVE) Urine Urobilinogen Normal MG/DL (0.0-1.0) Urine Leukocyte Esterase Negative (NEGATIVE) Urine RBC 0-2 /HPF (0 - 2) Urine WBC 0-2 /HPF (0 - 2) Urine Squamous Epithelial Cells Few /LPF (NONE/OCC) Urine Amorphous Sediment Moderate /LPF (NONE) H Urine Bacteria Few /HPF (NONE) Hemoglobin A1c 12.0 % (< 6.0) H Triglycerides Level 193 mg/dL (< 150) H Cholesterol Level 150 mg/dL (< 200) LDL Cholesterol 82 mg/dL (60-99) HDL Cholesterol 29 mg/dL (> 60) Cholesterol/HDL Ratio 5.2 (3.3-4.4) H Thyroid Stimulating Hormone (TSH) 1.050 uIU/mL (0.300-4.500) Height (Feet): 5 Height (Inches): 3.00 Weight (Pounds): 120 Medications Current Medications Medications (Trade) Dose Ordered Sig/Janki Route PRN Reason Start Time Stop Time Status Last Admin Dose Admin Acetaminophen (Tylenol) 650 mg Q4H PRN ORAL T>100.5 05/13/17 10:00 06/12/17 09:59 Albuterol/ Ipratropium (DuoNeb 0.5-3(2.5)mg/3ml) 3 ml Q4H PRN HHN Shortness of Breath 05/13/17 10:00 05/18/17 09:59 Aspirin (Ecotrin) 325 mg DAILY ORAL 05/13/17 09:00 06/12/17 08:59 05/13/17 09:57 Atorvastatin Calcium (Lipitor) 20 mg BEDTIME ORAL 05/13/17 21:00 06/12/17 20:59 Dextrose (Dextrose 50%) STAT PRN IV Hypoglycemia 05/13/17 18:15 06/12/17 18:14 Donepezil HCl (Aricept) 5 mg DAILY ORAL 05/13/17 09:00 06/12/17 08:59 05/13/17 09:57 Heparin Sodium (Porcine) (Heparin 5000 units/ml) 5,000 units EVERY 12 HOURS SUBQ 05/13/17 09:00 06/12/17 08:59 05/13/17 09:59 Insulin Aspart (NovoLOG) BEFORE MEALS AND HS SUBQ 05/13/17 06:30 9/5/17 06:29 05/13/17 06:41 Lorazepam (Ativan 2mg/ml 1ml) 1 mg Q4H PRN IV For Anxiety 05/13/17 09:30 05/20/17 09:29 Lorazepam (Ativan) 1 mg Q8H PRN ORAL ANXIETY 05/13/17 10:00 05/20/17 09:59 Meloxicam (Mobic) 7.5 mg DAILY ORAL 05/13/17 09:00 06/12/17 08:59 05/13/17 09:56 Nitroglycerin (Ntg) 0.4 mg Q5M PRN SL Prn Chest Pain 05/13/17 06:05 06/12/17 06:04 Ondansetron HCl (Zofran) 4 mg Q6H PRN IVP Nausea & Vomiting 05/13/17 12:00 06/12/17 11:59 Polyethylene Glycol (Miralax) 17 gm DAILYPRN PRN ORAL Constipation 05/13/17 18:00 06/12/17 17:59 Quetiapine Fumarate (SEROquel) 150 mg BEDTIME ORAL 05/13/17 21:00 06/12/17 20:59 Sodium Chloride (Sodium Chloride 1000ml bag) 1,000 ml @ 50 mls/hr Q20H IV 05/13/17 06:00 06/12/17 05:59 Temazepam (Restoril) 15 mg DAILYPRN PRN ORAL Insomnia 05/13/17 21:00 05/20/17 20:59 Trihexyphenidyl HCl (Artane) 2 mg TWICE A DAY ORAL 05/13/17 09:00 06/12/17 08:59 05/13/17 09:56 Assessment/Plan Status: not improved Assessment/Plan schizoaffective bipolar type. DD -Depakpte by510vw qhs -risperdal 2mg qhs -klonopin .5 Sascha Mckenna M.D. May 13, 2017 14:47
[2017-05-13] MEDS: clonazePAM 0.5mg tab ORAL PRN (15:39)
[2017-05-13 16:00] VITALS: BP 120/91
--- NOTE | 2017-05-13 16:19 | Cardiology Report ---
APPROVED REPORT EKG Measurement Heart [id number] Sinus tachycardia Possible Left atrial enlargement Nonspecific ST and T wave abnormality Abnormal ECG
--- NOTE | 2017-05-13 16:59 | Cardiology Progress Note ---
Assessment/Plan Assessment/Plan [id number] Objective Last 24 Hour Vital Signs Date Time Temp Pulse Resp B/P Pulse Ox O2 Delivery O2 Flow Rate FiO2 05/13/17 16:00 98.2 96 18 120/91 97 Room Air 05/13/17 12:00 96.8 83 18 140/62 100 Room Air 05/13/17 08:00 97.3 85 18 126/58 98 Room Air 05/13/17 06:35 98 18 Room Air 05/13/17 06:18 97.4 63 18 104/50 100 Room Air 05/13/17 04:00 104 05/13/17 04:00 98.3 107 18 118/70 97 Room Air 05/13/17 00:00 121 05/12/17 23:39 97.8 125 20 115/69 98 Room Air 05/12/17 20:00 97.6 89 20 133/73 98 Room Air 05/12/17 20:00 79 05/12/17 18:00 97.9 86 18 104/61 96 Room Air 05/12/17 17:35 98.1 92 18 120/58 98 Room Air 05/12/17 17:18 98.1 92 18 120/58 98 Room Air Intake and Output 05/12/17 05/13/17 19:00 07:00 Intake Total 460 ml 600 ml Balance 460 ml 600 ml Intake Oral 60 ml 50 ml IV Total 400 ml 550 ml # Bowel Movements 2 Laboratory Tests Test 05/13/17 05:02 White Blood Count 7.5 K/UL (4.8-10.8) Red Blood Count 3.56 M/UL (4.20-5.40) L Hemoglobin 10.8 G/DL (12.0-16.0) L Hematocrit 32.0 % (37.0-47.0) L Mean Corpuscular Volume 90 FL (80-99) Mean Corpuscular Hemoglobin 30.2 PG (27.0-31.0) Mean Corpuscular Hemoglobin Concent 33.6 G/DL (32.0-36.0) Red Cell Distribution Width 11.9 % (11.6-14.8) Platelet Count 188 K/UL (150-450) Mean Platelet Volume 8.7 FL (6.5-10.1) Neutrophils (%) (Auto) 52.7 % (45.0-75.0) Lymphocytes (%) (Auto) 40.6 % (20.0-45.0) Monocytes (%) (Auto) 4.7 % (1.0-10.0) Eosinophils (%) (Auto) 1.4 % (0.0-3.0) Basophils (%) (Auto) 0.7 % (0.0-2.0) Sodium Level 142 mEQ/L (135-145) Potassium Level 4.8 mEQ/L (3.4-4.9) Chloride Level 105 mEQ/L (98-107) Carbon Dioxide Level 24 mEQ/L (20-30) Anion Gap 13 (5-15) Blood Urea Nitrogen 36 mg/dL (7-23) H Creatinine 1.0 mg/dL (0.5-0.9) H Estimat Glomerular Filtration Rate 55.1 mL/min (>60) Glucose Level 225 mg/dL (74-106) #H Hemoglobin A1c 12.0 % (< 6.0) H Calcium Level 9.1 mg/dL (8.6-10.2) Troponin I < 0.30 ng/mL (<=0.30) Triglycerides Level 193 mg/dL (< 150) H Cholesterol Level 150 mg/dL (< 200) LDL Cholesterol 82 mg/dL (60-99) HDL Cholesterol 29 mg/dL (> 60) Cholesterol/HDL Ratio 5.2 (3.3-4.4) H Thyroid Stimulating Hormone (TSH) 1.050 uIU/mL (0.300-4.500) SIDNEY ESCUDERO May 13, 2017 16:59
[2017-05-13] MEDS ORDERED: Miralax 17gm pkt ORAL PRN (18:00)
[2017-05-13 20:00] VITALS: BP 154/74
[2017-05-13] MEDS: Atorvastatin 20mg tab ORAL SCH ×2 (20:34→21:00)
[2017-05-13] MEDS: Depakote ER 250mg tab ORAL SCH (20:34)
[2017-05-14] VITALS: BP 147/79
--- NOTE | 2017-05-14 00:30 | Consultation ---
DATE OF CONSULTATION: 05/13/2017 CARDIOLOGY CONSULTATION REFERRING PHYSICIAN: Manuel Sr M.D. REASON FOR REFERRAL: Possible chest pain. HISTORY OF PRESENT ILLNESS: This is an elderly female, who is a resident of a convalescent facility that she is completely unable to provide any meaningful history. She is somewhat demented and was transferred [facility] to [facility] for evaluation of possible chest pain. I am not sure how that information was obtainable. Unfortunately, the patient really unable to provide significant information. On questioning, she actually denies any pain to me at this time whatever that source. PAST MEDICAL HISTORY: Diabetes mellitus, diabetic neuropathy, chronic obstructive pulmonary disease, peripheral vascular disease, hypertension, dementia, paranoid schizophrenia, depression, pressure ulcers, encephalopathy, morbid obesity, psychosis, chronic kidney disease, osteoarthritis and questionable chest pain. She has had one evaluation at [facility], which I have reviewed. The patient apparently at that time refused testing and was discharged. ALLERGIES: Codeine and Depakote. SOCIAL HISTORY: She does not smoke or drink alcoholic beverages at the present time. She is a resident of convalescent facility. REVIEW OF SYSTEMS: Unobtainable. PHYSICAL EXAMINATION: GENERAL: The patient is an elderly female, drowsy and unresponsive, contracted, several sores over her face, arousable, and responsive for a short period of time and falls asleep. VITAL SIGNS: Blood pressure is 141/86, heart rate of 91, temperature 97.7 degrees, and saturation 95% on room air. LUNGS: Clear to auscultation and percussion, although she pushes me away during my examination. CARDIAC: Regular rate and rhythm. No heaves or thrills. ABDOMEN: Soft. EXTREMITIES: There is no edema. Chronic changes on the skin of the lower extremities and contracted on the left side. NEUROLOGIC: She is arousable, but falls asleep significantly. LABORATORY AND DIAGNOSTIC DATA: A CT scan showed no evidence of intracranial bleed, mass effect or edema. Mild atrophy of the brain. She had a CT scan of her spine that showed no acute injury, spondylosis, or osteopenia and she did have upper extremity duplex study that showed flow within the limits, just mild plaquing was noted and the patient's electrocardiogram shows sinus rhythm and leftward axis delay in R-wave progression, but no other ST or T-wave abnormalities being documented. The EKG that was repeated here was basically read as being normal. Some nonspecific T-wave changes. Her blood tests, sodium 141, potassium 3.6, chloride 102, bicarbonate 24, BUN 14, creatinine 0.7, and glucose of 107. Calcium is 94. Alkaline phosphatase 143. LDL of 58, HDL of 142, and total cholesterol of 195. TSH of 1.01. INR of 1.9 today and yesterday was 2.5. Urinalysis is fairly unremarkable. White count is 7.5 with hemoglobin of 10.8 and platelet count of 188,000. Sodium is 142, potassium 4.8, chloride 105, bicarbonate 24, BUN 36, creatinine 1.0, and glucose was 225 down from 634 with a creatinine down from 1.6 to 1.0. Two sets of cardiac enzymes are negative. ProBNP is 2100. Triglycerides of 103 with a LDL of 82 and HDL of 29. TSH of 1.5. Urinalysis is fairly unremarkable. Her toxicology screen, acetone level was negative. Her chest x-ray performed in the emergency room shows atherosclerotic changes and valvular calcification, otherwise, negative. The patient's electrocardiogram shows sinus rhythm and no ST or T-wave abnormalities . ASSESSMENT AND PLAN: 1. Questionable chest pain. 2. Significant advanced dementia. 3. Diabetes mellitus. 4. Hypertension. 5. Hyperlipidemia. Dr. Sr, this patient was seen in cardiac consultation. The patient is quite demented with a history of chest pain. I am not sure how accurate it is. Nevertheless, she does not have any changes on electrocardiogram and no cardiac enzymes abnormality. I do not favor any further testing at this time. Viraj Bunch M.D. DR: LORENA JOB#: [id number] CC:
[2017-05-14] MEDS: NovoLOG Insulin Flexpen SUBQ SCH ×5 (06:30→21:41)
[2017-05-14 08:00] VITALS: BP 133/67
[2017-05-14] MEDS: LORazepam 1mg tab ORAL PRN (10:01)
[2017-05-14] MEDS: Heparin 5000 units/ml inj SUBQ SCH ×2 (10:02→21:25)
[2017-05-14] MEDS: Aspirin EC 325mg tab ORAL SCH ×2 (10:02→10:08)
[2017-05-14 12:00] VITALS: BP 180/114
[2017-05-14] MEDS ORDERED: DiphenhydrAMINE 50mg/ml Inj IM ONE (12:45)
[2017-05-14] MEDS ORDERED: LORazepam Inj 2mg/ml 1ml IM ONE (12:45)
[2017-05-14] MEDS ORDERED: Haloperidol 5mg/ml Inj IM ONE (12:45)
--- NOTE | 2017-05-14 14:19 | Wound Care Consultation ---
Wound Assessment Wound Assessment #1: Wound Number: #1 Wound Present on Admission: Yes New Wound: No Status Change of Wound: No Wound Location Body Site: frontal region - forehead Wound Type: scab - scattered scabs Wilfred Test: Does not Wilfred Wound Thickness: Full Thickness Percent of Wound Dish/Red: 50 - scattered scabs Percent of Wound Black/Brown: 50 - scattered scabs Wound Drainage Amount: None Wound Drainage Odor: None/Absent Tissue Surrounding Wound: Erythemic Wound General Appearance: Reddened, Blackened - scabs. Wound Assessment #2: Wound Number: #2 Wound Present on Admission: Yes New Wound: No Status Change of Wound: No Wound Location Body Site Modif: left, upper, lateral Wound Location Body Site: leg Wound Type: scab Wilfred Test: Does not Wilfred Wound Thickness: Full Thickness Wound Length: 3.5 Wound Width: 2.0 Wound Depth: utd Percent of Wound Bed Yellow/Wh: 50 - yellow scab Percent of Wound Black/Brown: 50 - yellow scab Wound Drainage Amount: None Wound Drainage Odor: None/Absent Tissue Surrounding Wound: Intact Wound General Appearance: Reddened, Blackened Wound Assessment #3: Wound Number: #3 Wound Present on Admission: Yes New Wound: No Status Change of Wound: No Wound Location Body Site Modif: left, lower, lateral Wound Location Body Site: leg Wound Type: scab Wilfred Test: Does not Wilfred Wound Thickness: Full Thickness Wound Length: 2.0 Wound Width: 2.0 Wound Depth: utd Percent of Wound Black/Brown: 100 - scab Wound Drainage Amount: None Wound Drainage Odor: None/Absent Tissue Surrounding Wound: Intact Wound General Appearance: Blackened - scab Wound Assessment #4: Wound Number: #4 Wound Present on Admission: Yes New Wound: No Status Change of Wound: No Wound Location Body Site Modif: left, lower, medial Wound Location Body Site: leg Wound Type: other - OPEN WOUND-ETIOLOGY UNKNOWN. Wilfred Test: Does not Wilfred Wound Thickness: Full Thickness Wound Length: 2.0 Wound Width: 2.0 Wound Depth: UTD Percent of Wound Bed Yellow/Wh: 100 Wound Drainage Description: Serosanguineous Wound Drainage Amount: Moderate Wound Drainage Odor: None/Absent Tissue Surrounding Wound: Erythemic Wound General Appearance: Reddened, Draining, Necrotic Wound Assessment #5: Wound Number: #5 Wound Present on Admission: Yes New Wound: No Status Change of Wound: No Wound Location Body Site Modif: left, medial Wound Location Body Site: knee Wound Type: pressure ulcer Wilfred Test: Does not Wilfred Pressure Ulcer Stage: IV/unstageable Wound Thickness: Full Thickness Wound Length: 2.0 Wound Width: 2.0 Wound Depth: UTD Percent of Wound Bed Yellow/Wh: 100 Wound Drainage Description: Serosanguineous Wound Drainage Amount: Scant Wound Drainage Odor: None/Absent Tissue Surrounding Wound: Erythemic Wound General Appearance: Necrotic Wound Assessment #6: Wound Number: #6 Wound Present on Admission: Yes New Wound: No Status Change of Wound: No Wound Location Body Site Modif: right, medial Wound Location Body Site: knee Wound Type: pressure ulcer Wilfred Test: Does not Wilfred Pressure Ulcer Stage: IV/unstageable Wound Thickness: Full Thickness Wound Length: 2.0 Wound Width: 2.0 Wound Depth: UTD Percent of Wound Dish/Red: 20 Percent of Wound Bed Yellow/Wh: 80 Wound Drainage Description: Serosanguineous Wound Drainage Amount: Moderate Wound Drainage Odor: None/Absent Tissue Surrounding Wound: Erythemic Wound General Appearance: Reddened, Necrotic Wound Assessment #7: Wound Number: #7 Wound Present on Admission: Yes New Wound: No Status Change of Wound: No Wound Location Body Site Modif: right Wound Location Body Site: heel - extending to lateral heel Wound Type: pressure ulcer Wilfred Test: Does not Wilfred Pressure Ulcer Stage: deep tissue injury Wound Thickness: Full Thickness Wound Length: 5.0 Wound Width: 5.0 Wound Depth: UTD Percent of Wound Purple/Maroon: 100 Wound Drainage Amount: None Wound Drainage Odor: None/Absent Tissue Surrounding Wound: Erythemic Wound General Appearance: Reddened Wound Assessment #8: Wound Number: #8 Wound Present on Admission: Yes New Wound: No Status Change of Wound: No Wound Location Body Site Modif: mid Wound Location Body Site: other - sacrococcygeal Wound Type: pressure ulcer Wilfred Test: Does not Wilfred Pressure Ulcer Stage: IV/unstageable Wound Thickness: Full Thickness Wound Length: 6.0 Wound Width: 6.0 Wound Depth: UTD Percent of Wound Dish/Red: 50 Percent of Wound Bed Yellow/Wh: 50 Wound Drainage Description: Serosanguineous Wound Drainage Amount: Moderate Wound Drainage Odor: None/Absent Tissue Surrounding Wound: Macerated Wound General Appearance: Reddened, Draining, Necrotic Wound Comment #1 Frontal forehead scattered scabs. #2 Left lateral upper leg scab. #3 Left lateral lower leg scab. #4 Left medial lower leg open wound -etiology unknown #5 Left medial knee Unstageable pressure ulcer. #6 Right medial knee Unstageable pressure ulcer. #7 Right heel extending to lateral side deep tissue injury. #8 Sacrococcygeal UNSTAGEABLE pressure ulcer. Recommendation. - Local wound care as ordered. -Apply low air loss SPR mattress for wound and skin management. - Turn and reposition. -Keep clean and dry. -Optimize nutrition. -Offload heel and lower extremities. -Apply heel protectors. -Avoid shear and friction. -Assess and notify MD for any further changes of condition noted to skin. PAUL BATISTA May 14, 2017 14:19
[2017-05-14 16:00] VITALS: BP 118/49
--- NOTE | 2017-05-14 17:03 | Pulmonology Progress Note ---
Assessment/Plan Problems: (1) Uncontrolled diabetes mellitus (2) Schizophrenia (3) Renal insufficiency (4) Hyperglycemia (5) Diabetes (6) Dementia Assessment/Plan iv fluids sliding scale psyc f/u dc planning Subjective ROS Limited/Unobtainable: Yes Interval Events: was agitated earlier Allergies: Coded Allergies: CODEINE (Unverified Allergy, Unknown, 12/18/14) DIVALPROEX SODIUM (Unverified Allergy, Unknown, 12/18/14) Objective Last 24 Hour Vital Signs Date Time Temp Pulse Resp B/P Pulse Ox O2 Delivery O2 Flow Rate FiO2 05/14/17 16:00 97.3 100 20 118/49 96 Room Air 05/14/17 12:00 97.3 100 20 180/114 96 Room Air 05/14/17 08:45 85 18 Room Air 05/14/17 08:00 98.2 92 20 133/67 98 Room Air 05/14/17 00:00 97.6 74 20 147/79 96 Room Air 05/13/17 20:11 99 18 Room Air 05/13/17 20:00 97.7 71 20 154/74 94 Room Air Intake and Output 05/13/17 05/14/17 19:00 07:00 Intake Total 550 ml Output Total 2 ml Balance 548 ml Intake Oral 150 ml IV Total 400 ml Output Urine Total 2 ml # Voids 2 # Bowel Movements 1 General Appearance: WD/WN HEENT: normocephalic Respiratory/Chest: chest wall non-tender, lungs clear Cardiovascular: normal peripheral pulses, normal rate Abdomen: normal bowel sounds, soft, non tender Extremities: no cyanosis, no clubbing Skin: no rash Current Medications Medications (Trade) Dose Ordered Sig/Janki Route PRN Reason Start Time Stop Time Status Last Admin Dose Admin Acetaminophen (Tylenol) 650 mg Q4H PRN ORAL T>100.5 05/13/17 10:00 06/12/17 09:59 Albuterol/ Ipratropium (DuoNeb 0.5-3(2.5)mg/3ml) 3 ml Q4H PRN HHN Shortness of Breath 05/13/17 10:00 05/18/17 09:59 Aspirin (Ecotrin) 325 mg DAILY ORAL 05/13/17 09:00 06/12/17 08:59 05/13/17 09:57 Atorvastatin Calcium (Lipitor) 20 mg BEDTIME ORAL 05/13/17 21:00 06/12/17 20:59 Clonazepam (KlonoPIN) 0.5 mg BIDPRN PRN ORAL For Anxiety 05/13/17 15:00 05/20/17 14:59 05/13/17 15:39 Dextrose (Dextrose 50%) STAT PRN IV Hypoglycemia 05/13/17 18:15 06/12/17 18:14 Divalproex Sodium (Depakote ER) 750 mg BEDTIME ORAL 05/13/17 21:00 06/12/17 20:59 05/13/17 20:34 Heparin Sodium (Porcine) (Heparin 5000 units/ml) 5,000 units EVERY 12 HOURS SUBQ 05/13/17 09:00 06/12/17 08:59 05/13/17 09:59 Insulin Aspart (NovoLOG) BEFORE MEALS AND HS SUBQ 05/13/17 06:30 06/12/17 06:29 05/14/17 13:08 Lorazepam (Ativan 2mg/ml 1ml) 1 mg Q4H PRN IV For Anxiety 05/13/17 09:30 05/20/17 09:29 05/14/17 03:14 Lorazepam (Ativan) 1 mg Q8H PRN ORAL ANXIETY 05/13/17 10:00 05/20/17 09:59 Meloxicam (Mobic) 7.5 mg DAILY ORAL 05/13/17 09:00 06/12/17 08:59 05/13/17 09:56 Nitroglycerin (Ntg) 0.4 mg Q5M PRN SL Prn Chest Pain 05/13/17 06:05 06/12/17 06:04 Ondansetron HCl (Zofran) 4 mg Q6H PRN IVP Nausea & Vomiting 05/13/17 12:00 06/12/17 11:59 Polyethylene Glycol (Miralax) 17 gm DAILYPRN PRN ORAL Constipation 05/13/17 18:00 06/12/17 17:59 Risperidone (RisperDAL) 2 mg BEDTIME ORAL 05/13/17 21:00 06/12/17 20:59 05/13/17 20:34 Temazepam (Restoril) 15 mg DAILYPRN PRN ORAL Insomnia 05/13/17 21:00 05/20/17 20:59 05/13/17 20:35 Vitamin A/Vitamin D (A & D Oint) 1 applic EVERY 12 HOURS [facility] 05/14/17 21:00 06/13/17 20:59 KARI NORRIS May 14, 2017 17:03
[2017-05-14 20:00] VITALS: BP 101/56
--- NOTE | 2017-05-14 21:00 | Progress Note ---
DATE: 05/14/2017 SUBJECTIVE: The patient continues to have anxiety, agitation, yelling, screaming, not following staff's direction and she is not able to be engaged during the evaluation, and primary impairment. She received a cocktail today. MENTAL STATUS EXAMINATION: The patient is alert and oriented times self. Mood is agitated. Affect is constricted. Congruent mood. Thought process is disorganized. Thought content, positive for delusions. Cognition is impaired. ASSESSMENT: Schizoaffective disorder. PLAN: The patient will be continued on current medication. We will continue to readjust the medications. Sascha Lott M.D. DR: JOCELYN JOB#: [id number] CC:
[2017-05-14] MEDS: Atorvastatin 20mg tab ORAL SCH (21:22)
[2017-05-14] MEDS: Vitamin A&D Oint 2oz Tube TOPIC SCH (21:22)
[2017-05-14] MEDS: Depakote ER 250mg tab ORAL SCH (21:22)
[2017-05-15] VITALS: BP 112/66
[2017-05-15 04:29] VITALS: BP 116/68
[2017-05-15] MEDS: NovoLOG Insulin Flexpen SUBQ SCH ×3 (06:53→16:41)
[2017-05-15 08:00] VITALS: BP 101/48
[2017-05-15] MEDS: Aspirin EC 325mg tab ORAL SCH (08:10)
[2017-05-15] MEDS: LORazepam 1mg tab ORAL PRN (08:22)
[2017-05-15] MEDS: Vitamin A&D Oint 2oz Tube TOPIC SCH (08:25)
[2017-05-15] MEDS: Heparin 5000 units/ml inj SUBQ SCH (08:25)
--- NOTE | 2017-05-15 09:02 | Diagnostic Imaging Report ---
Indication: Altered mental status Technique: Continuous helical CT scanning of the head was performed without intravenous contrast material. Axial and coronal 5 mm sections were generated. Dose: Total Dose Length Product - DLP [address] Dose Index - CTDIvol(s) 70.38 mGy. Comparison: None Findings: There is prominence of cortical sulci and the ventricular system. Periventricular low density is present. There is no shift of midline structures. No abnormal extra-axial fluid collections are noted. There is no evidence of intracerebral bleeding. No other abnormal high or low density areas are noted within the brain. Impression: Atrophy. Chronic small vessel white matter ischemic change. No acute abnormality. The above report is concordant with preliminary reading by [facility] . The CT scanner at [facility] is accredited by the [employer] and the scans are performed using protocols designed to limit radiation exposure to as low as reasonably achievable to attain images of sufficient resolution adequate for diagnostic evaluation.
--- NOTE | 2017-05-15 09:02 | Cardiology Report ---
APPROVED REPORT EXAM: Two-dimensional and M-mode echocardiogram with Doppler and color Doppler. INDICATION Chest Pain M-Mode DIMENSIONS Left Atrium (MM)2.9 (1.6-4.0cm) Aortic Root2.1 (2.0-3.7cm) Aortic Cusp Exc.1.7 (1.5-2.0cm) Technically difficult study due to poor acoustic windows. Study quality precludes accurate assessment of regional wall motion. M-mode measurements could not be determined due to cardiac position. Normal left ventricular chamber size,hyperdynamic systolic function and wall motion. Left ventricular ejection fraction estimated to be 70-75 %. Mild left ventricular hypertrophy. Small pericardial effusion. All other cardiac chamber sizes are within normal limits. Mild focal aortic valve sclerosis with adequate cusp excursion. Thickened mitral valve leaflets with normal excursion. Heavily calcified mitral annulus and aortic root calcification. Pulmonic valve not visualized. Normal tricuspid valve structure. IVC dilated at 1.7 cm with physiologic collapse. A color flow and spectral Doppler study was performed and revealed: Mild aortic regurgitation. Moderately mitral regurgitation. Mitral diastolic velocities suggest reduced left ventricular relaxation (Grade I). No tricuspid regurgitation. No pulmonic regurgitation present. Dynamic lvot obstruction / cavity obliteration noted
[2017-05-15 12:00] VITALS: BP 143/71
--- NOTE | 2017-05-15 13:55 | Pulmonology Progress Note ---
Assessment/Plan Assessment/Plan ASSESSMENT questionable chest pain hyperglycemia DM OOC HTN acute on chronic encephalopathy acute renal insufficiency due to dehydration -resolved dehydration chronic advanced dementia Parkinson disease Schizoaffective disorder. left medial knee un-stageable pressure ulcer. right medial knee un-stageable pressure ulcer. sacrococcygea un-stageable pressure ulcer. PLAN OF CARE MS floor serial troponin x 2 negative ECHO with pEF 60% and RVSP of 12, evidence of moderate MR and diastolic dysfunction ECG no ST changes , cardio follows serial troponin negative, ECG no acute ischemic changes, no evidence of acute CT , no evidence of myonecrosis questionable c/o chest pain in this patient with advanced chronic dementia restarted on ASA Nitro prn BP stable lipid panel with elevated TG low fat diet BS management with SS of insulin, HgA1c -12.0 started on Levemir and optimize further as needed no evidence of DKA on initial presentation despite hyperglycemia CT head no acute intracranial pathology gentle IVF monitor renal parameters lytes, avoid nephrotoxic creat down to normal RF likely precipitated by dehydration renal US DVT prophylaxis bowel regimen psych eval appreciated, on psych meds as per psych recommendations wound care as per wound nurse recommendation for POA decub and multiple skin scabs dc today to SNF case discussed and evaluated by supervising physician Subjective Allergies: Coded Allergies: CODEINE (Unverified Allergy, Unknown, 12/18/14) DIVALPROEX SODIUM (Unverified Allergy, Unknown, 12/18/14) Subjective no complaints of chest pain, no SOB Objective Last 24 Hour Vital Signs Date Time Temp Pulse Resp B/P Pulse Ox O2 Delivery O2 Flow Rate FiO2 05/15/17 12:00 98.1 100 18 143/71 99 05/15/17 08:00 98.2 100 20 101/48 95 Room Air 05/15/17 07:41 95 16 Room Air 05/15/17 04:29 98.5 100 20 116/68 97 Room Air 05/15/17 00:00 98.6 89 20 112/66 98 Room Air 05/14/17 20:24 86 18 Room Air 05/14/17 20:00 99.1 98 20 101/56 98 Room Air 05/14/17 16:00 97.3 100 20 118/49 96 Room Air Intake and Output 05/14/17 05/15/17 19:00 07:00 Intake Total 120 ml 240 ml Balance 120 ml 240 ml Intake Oral 120 ml 240 ml # Voids 7 2 # Bowel Movements 2 1 Objective General Appearance: alert, confused, other Lines, tubes and drains: peripheral HEENT: normocephalic, atraumatic, anicteric Neck: non-tender, supple Respiratory/Chest: lungs clear, no respiratory distress, no accessory muscle use Cardiovascular/Chest: normal peripheral pulses, normal rate, regular rhythm Abdomen: normal bowel sounds, non tender, soft Neurologic: abnormal gait, alert - confused, responsive, farsi speaking Musculoskeletal: atrophy - BLE Microbiology Date/Time Source Procedure Growth Status 05/12/17 17:04 Rectum VRE Culture - Final Enterococcus Faecalis - Vre Complete Current Medications Medications (Trade) Dose Ordered Sig/Janki Route PRN Reason Start Time Stop Time Status Last Admin Dose Admin Acetaminophen (Tylenol) 650 mg Q4H PRN ORAL T>100.5 05/13/17 10:00 06/12/17 09:59 Albuterol/ Ipratropium (DuoNeb 0.5-3(2.5)mg/3ml) 3 ml Q4H PRN HHN Shortness of Breath 05/13/17 10:00 05/18/17 09:59 Aspirin (Ecotrin) 325 mg DAILY ORAL 05/13/17 09:00 06/12/17 08:59 05/15/17 08:10 Atorvastatin Calcium (Lipitor) 20 mg BEDTIME ORAL 05/13/17 21:00 06/12/17 20:59 05/14/17 21:22 Clonazepam (KlonoPIN) 0.5 mg BIDPRN PRN ORAL For Anxiety 05/13/17 15:00 05/20/17 14:59 05/13/17 15:39 Dextrose (Dextrose 50%) STAT PRN IV Hypoglycemia 05/13/17 18:15 06/12/17 18:14 Divalproex Sodium (Depakote ER) 750 mg BEDTIME ORAL 05/13/17 21:00 06/12/17 20:59 05/14/17 21:22 Heparin Sodium (Porcine) (Heparin 5000 units/ml) 5,000 units EVERY 12 HOURS SUBQ 05/13/17 09:00 06/12/17 08:59 05/15/17 08:25 Insulin Aspart (NovoLOG) BEFORE MEALS AND HS SUBQ 05/13/17 06:30 06/12/17 06:29 05/15/17 06:53 Lorazepam (Ativan 2mg/ml 1ml) 1 mg Q4H PRN IV For Anxiety 05/13/17 09:30 05/20/17 09:29 05/14/17 03:14 Lorazepam (Ativan) 1 mg Q8H PRN ORAL ANXIETY 05/13/17 10:00 05/20/17 09:59 05/15/17 08:22 Meloxicam (Mobic) 7.5 mg DAILY ORAL 05/13/17 09:00 06/12/17 08:59 05/15/17 08:10 Nitroglycerin (Ntg) 0.4 mg Q5M PRN SL Prn Chest Pain 05/13/17 06:05 06/12/17 06:04 Ondansetron HCl (Zofran) 4 mg Q6H PRN IVP Nausea & Vomiting 05/13/17 12:00 06/12/17 11:59 Polyethylene Glycol (Miralax) 17 gm DAILYPRN PRN ORAL Constipation 05/13/17 18:00 06/12/17 17:59 Risperidone (RisperDAL) 2 mg BEDTIME ORAL 05/13/17 21:00 06/12/17 20:59 05/14/17 21:22 Temazepam (Restoril) 15 mg DAILYPRN PRN ORAL Insomnia 05/13/17 21:00 05/20/17 20:59 05/13/17 20:35 Vitamin A/Vitamin D (A & D Oint) 1 applic EVERY 12 HOURS [facility] 05/14/17 21:00 06/13/17 20:59 05/15/17 08:25 [facility]Beren[facility] Storm NP May 15, 2017 13:55
[2017-05-15] MEDS: clonazePAM 0.5mg tab ORAL PRN (14:59)
--- NOTE | 2017-05-15 15:12 | Consultation ---
Consult Note Consult Note Askse dto eval for abnormal renal parameters not historian examined data reviewed Assessment/Plan status: admitted with chest pain r/o ACS hyperglycemia, glucose over 600 DM OOC Hx of HTN acute on chronic encephalopathy acute on chronic renal insufficiency chronic dementia Parkinson disease Worsening Anemia Plan: Amanda VAZQUEZ control BP control Watch H&H PAM CARNEY May 15, 2017 15:12
--- NOTE | 2017-05-15 16:12 | Diagnostic Imaging Report ---
Indication: Elevated renal function tests Technique: Grayscale and duplex images of the kidneys, retroperitoneum, and bladder were obtained. Comparison:None Findings: Exam is slightly limited, as patient was intermittently unable to cooperate, per technologist. Right kidney measures 10 cm in length. Left kidney measures 9.1 cm in length. Both kidneys demonstrate normal echogenicity. No hydronephrosis. 11 mm cyst is seen in the left renal lower pole. Upper pole. Normal inferior vena cava. Bladder is normal. Impression: Essentially unremarkable exam. Negative for hydronephrosis Small bilateral renal cysts.
--- NOTE | 2017-05-16 00:30 | Progress Note ---
DATE: 05/15/2017 SUBJECTIVE: The patient continues to be yelling, screaming, easily agitated, confused, disorganized, . MENTAL STATUS EXAMINATION: The patient is alert and oriented times self. Mood is agitated. Affect is constricted, congruent with mood. Thought process is disorganized. Thought content, positive for delusions. Cognition is impaired. Insight and judgment impaired. ASSESSMENT: 1. Schizoaffective disorder. 2. Encephalopathy. PLAN: The patient will be continued on current medications. Provide the patient with supportive therapy and reality orientation. Sascha Lott M.D. DR: MARIA DEL CARMEN JOB#: [id number] CC:
--- NOTE | 2017-05-17 18:00 | Discharge Summary ---
Discharge Summary Hospital Course Date of Admission May 12, 2017 at 17:25 Date of Discharge May 15, 2017 at 17:08 Admitting Diagnosis ACUTE CORONARY SYNDROME HPI Albina Joe is a 66 year old female who was admitted on May 12, 2017 at 17:25 for Acute Coronary Syndrome Hospital Course [id number] Discharge Discharge Disposition Patient was discharged to SNF/Subacute Facility(03) Discharge Diagnoses: Carmenza Salvador NP May 17, 2017 18:00
--- NOTE | 2017-05-17 22:16 | Discharge Summary 2 SIG ---
DATE OF ADMISSION: 05/12/2017 DATE OF DISCHARGE: 05/15/2017 CONSULTANTS: 1. Sascha Lott M.D. 2. Cristino Slaughter M.D. 3. Viraj Bunch M.D. BRIEF HOSPITAL COURSE: The patient is a 66-year-old female with history of dementia, diabetes mellitus, hypertension, and Parkinson disease presented to the ED from SNF for evaluation of chest pain that started at the [facility] on the day of admission. The patient was unable to provide any additional history and was pointing towards chest and screamed. She appeared more altered than usual per [facility] staff. Accu-Chek done by EMS was critically high. Workup in ED revealed no fever. No leukocytosis. No UTI. Initial troponin was negative. ProBNP was 2113. Blood glucose was elevated to 634, anion gap and bicarbonates were normal. Acetone level negative. Urine was negative for ketones. Creatinine was 1.6, BUN was 51. She was then admitted to [facility] for chest pain, to rule out ACS, hyperglycemia, diabetes mellitus out of control; acute on chronic encephalopathy and acute on chronic renal insufficiency. She had a CT of the head done which showed no acute intracranial pathology. She was started on IV hydration and blood sugar management with insulin. Hemoglobin A1c was 12. She was followed by Dr. Bunch. The patient's electrocardiogram showed sinus rhythm with leftward axis delay in R-wave progression, but no other ST or T-wave abnormality. LDL was 58, HDL 142, and cholesterol 195. TSH was normal. Troponins were negative. Echocardiogram done showed ejection fraction of 70% to 75% with mild left ventricular hypertrophy. She was followed by Dr. Slaughter for evaluation of renal failure. Renal ultrasound done showed unremarkable exam with negative for hydronephrosis and small bilateral renal cyst. Creatinine improved with hydration. The patient was agitated, yelling, and had severe cognitive impairment. She was seen by Dr. Lott and upon conversation with the patient's brother gave consent for the patient to be started on antipsychotics. She was diagnosed to have schizoaffective bipolar type and was given Depakote ER 750 mg nightly, Risperdal 2 mg nightly, and Klonopin 0.5 mg b.i.d. She was given aspirin, nitroglycerin, and atorvastatin. Renal insufficiency, resolved. Blood glucose better controlled. She came in with unstageable pressure ulcers and was provided wound care. She was eventually discharged back to SNF. FINAL DIAGNOSES: 1. Acute on chronic encephalopathy. 2. Acute kidney injury due to dehydration, resolved. 3. Diabetes mellitus out of control. 4. Hypertension. 5. Dehydration. 6. Chronic advanced dementia. 7. Parkinson's disease. 8. Schizoaffective disorder. 9. Multiple unstageable pressure ulcers. 10. Worsening anemia. DISPOSITION: Discharged to [facility]. DISCHARGE MEDICATIONS: Refer to med list. FOLLOWUP: Follow up with PMD. Manuel Sr M.D. I have been assigned to dictate discharge summary on this account and I was not involved in the patient's management. Carmenza Salvador N.P. DR: JOSE ANTONIO JOB#: [id number] CC: NASIM[place]
== END 2017-05-15 17:08 | DRG 48 ==
LOC: EDBD 14:55 → EMR 15:19 → EDBEDREQ 16:52 → 2W 17:25 → 4E 05-13 06:09
DX: E11.40 Type 2 diabetes mellitus with diabetic neuropathy, unspecified (principal); G93.40 Encephalopathy, unspecified; N17.9 Acute kidney failure, unspecified; L89.150 Pressure ulcer of sacral region, unstageable; G20 Parkinson's disease; F02.80 Dementia in other diseases classified elsewhere, unspecified severity, without behavioral disturbance, psychotic disturbance, mood disturbance, and anxiety; L89.890 Pressure ulcer of other site, unstageable; E86.0 Dehydration; E11.65 Type 2 diabetes mellitus with hyperglycemia; R07.9 Chest pain, unspecified; I12.9 Hypertensive chronic kidney disease with stage 1 through stage 4 chronic kidney disease, or unspecified chronic kidney disease; N18.9 Chronic kidney disease, unspecified; I73.9 Peripheral vascular disease, unspecified; D64.9 Anemia, unspecified; Z88.6 Allergy status to analgesic agent; Z88.8 Allergy status to other drugs, medicaments and biological substances; F25.0 Schizoaffective disorder, bipolar type; E78.5 Hyperlipidemia, unspecified
CPT/HCPCS: 36415; 70450; 71010; 76775; 80048; 80053; 80061; 81003; 82009; 82550; 82553; 82962; 83036; 83735; 83880; 84443; 84484; 85025; 87081; 93005; 93306; 94664; J1815